=== PATIENT | male | born 1970 | race Caucasian/White ===

== ENCOUNTER 2020-02-01 09:13 | Day surgery (SDC) | payer OTHER ==
[~2020-02-01 09:13] MED LIST: Lactated Ringers 1,000 ML IV SCH
[2020-02-01] MEDS ORDERED: Midazolam 1 MG/ML 2 ML SDV ONE (10:37)
[2020-02-01] MEDS ORDERED: fentaNYL 100 MCG/2 ML SDV ONE (10:37)
[2020-02-01] MEDS ORDERED: Propofol 200 MG/20 ML SDV ONE ×4 (10:37→12:09)
--- NOTE | 2020-02-04 09:07 | OR ---
PREOPERATIVE DIAGNOSIS: Screening colonoscopy. POSTOPERATIVE DIAGNOSES: 1. Very redundant colon. 2. Colon polyp. PROCEDURE PERFORMED: Flexible colonoscopy. ANESTHESIA: MAC anesthesia. COMPLICATIONS: None apparent. BLOOD LOSS: Minimal. FINDINGS: 1. The colon was tremendously redundant and despite multiple maneuvers, we were able to just get to what we felt was the beginning of the ileocecal valve. We were unable to confirm with visualization of the appendiceal orifice. 2. Sigmoid polyp, 3 mm, cold forceps. 3. Significant stool staining throughout the colon. I do not feel that any large masses were missed, but a small polyp could have been. BOWEL PREP: [place] class 1. START TIME: 1115. CECUM TIME: 1145. STOP TIME: 1156. INDICATIONS FOR PROCEDURE: Mr. Zelaya is a 49-year-old male who is here for his screening colonoscopy. He did have one 10 years ago for some abdominal issues, but was reportedly normal. This was done at a different state. He is having no bloody or dark black stools. Denies family history of colorectal cancer. DETAILS OF PROCEDURE: After informed consent was obtained, the patient was brought to the procedure room. MAC anesthesia was induced by Anesthesia colleagues. He was placed in left lateral decubitus position. The colonoscope was introduced into the rectum and advanced all the way to the cecum. We saw partly visualized approximately 80% of the cecum. The ileocecal valve was photographed, but we were unable to confirm this location with visualization of the appendiceal orifice. His colon was very redundant and despite multiple maneuvers including abdominal pressure and repositioning, we were unable to deeply intubate the cecum. The colonoscope was then withdrawn and no pathology was identified except for what is mentioned in the findings section. The patient was awoken from anesthesia by Anesthesia colleagues without incident. PATHOLOGY: Recommend repeat screening colonoscopy in 5 years. I recommend this be done by Gastroenterology in [place]. RKM: 02/01/2020 12:01:49 MODL: 02/01/2020 12:21:09 /[id number]
== END 2020-02-01 12:53 | disposition home or self-care (01) ==
LOC: VM.SDS 09:13
PROVIDERS: ATTEND Student in an Organized Health Care Education/Training Program
DX: Z12.11 Encounter for screening for malignant neoplasm of colon (principal); K63.5 Polyp of colon; E66.9 Obesity, unspecified; Z79.899 Other long term (current) drug therapy; Z87.891 Personal history of nicotine dependence; Z01.812 Encounter for preprocedural laboratory examination; Z20.828 Contact with and (suspected) exposure to other viral communicable diseases; Z68.35 Body mass index [BMI] 35.0-35.9, adult
CPT/HCPCS: 00811; J2250; J2704; J3010; J7120; U0002